=== PATIENT | female | born 1995 | race Caucasian/White ===

== ENCOUNTER → 2016-12-13 | Outpatient (CLI) | payer MEDICAID ==
[2016-12-25 16:02] LABS: HPV 16 Not Detected (NOTDET); HPV 18 Not Detected (NOTDET)
== END ==
LOC: MW.CHOBGYN 11:22
PROVIDERS: ATTEND Obstetrics & Gynecology
DX: Z72.51 High risk heterosexual behavior (principal)
CPT/HCPCS: 36415; 86592; 86803; 87340; 87389; 87480; 87491; 87510; 87591; 87624; 87660; G0145

== ENCOUNTER 2017-01-12 06:18 | Day surgery (SDC) | payer MEDICAID ==
--- NOTE | 2017-01-12 06:44 | PCM.PREANE ---
Preanesthetic Assessment - Anesthesia/Transfusion/Family Hx Anesthesia History: Prior Anesthesia Without Reaction Family History of Anesthesia Reaction: No Transfusion History: No Prior Transfusion(s) Intubation History: Unknown - Review of Systems General: No Symptoms Pulmonary: No Symptoms Cardiovascular: No Symptoms Gastrointestinal: No symptoms Neurological: No Symptoms Other: Reports: None - Physical Assessment Height: 1.7 m Weight: 117.934 kg ASA Class: 2 Mental Status: Alert & Oriented x3 Airway Class: Mallampati = 2 Dentition: Reports: Normal Dentition, Broken Tooth/Teeth (small c hip front upper incisor) Thyro-Mental Finger Breadths: 3 Mouth Opening Finger Breadths: 3 ROM/Head Extension: Full Lungs: Clear to auscultation, Normal respiratory effort Cardiovascular: Regular Rate, Regular Rhythm - Allergies Allergies/Adverse Reactions: Allergies Allergy/AdvReac Type Severity Reaction Status Date / Time Penicillins Allergy Hives Verified 06/01/16 19:04 - Blood Blood Available: No - Anesthesia Plan Pre-Op Medication Ordered: None - Acknowledgements Anesthesia Type Planned: General Anesthesia Pt an Appropriate Candidate for the Planned Anesthesia: Yes Alternatives and Risks of Anesthesia Discussed w Pt/Guardian: Yes Pt/Guardian Understands and Agrees with Anesthesia Plan: Yes PreAnesthesia Questionnaire - Past Health History Medical/Surgical History: Denies Medical/Surgical History HEENT History: Reports: Allergic Rhinitis, Other (See Below) Other HEENT History: wears glasses/contacts Musculoskeletal History: Reports: Back Pain, Chronic, Neck Pain, Chronic, Other (See Below) (shoulder pain) Neurological History: Reports: Migraines Psychiatric History: Reports: Anxiety, Depression Endocrine/Metabolic History: Reports: Obesity/BMI 30+ Immunologic History: Reports: Other (See Below) (tested positive for angioedema) Dermatologic History: Reports: Eczema - Past Surgical History Head Surgeries/Procedures: Reports: None HEENT Surgical History: Reports: Oral Surgery Other HEENT Surgeries/Procedures: wisdom teeth extraction - SUBSTANCE USE Smoking Status *Q: Never Smoker Second Hand Smoke Exposure: No Days Per Week of Alcohol Use: 0 Recreational Drug Use History: No Recreational Drug Type: Reports: Marijuana/Hashish - HOME MEDS Home Medications: Home Meds Cetirizine HCl [Allergy Relief] 1 tab PO ASDIRECTED 01/10/17 [History] Desogestrel/Ethinyl Estradiol [Apri] 1 tab PO DAILY 01/10/17 [History] - CURRENT (IN HOUSE) MEDS Current Meds: Current Medications Hydrocodone Bitart/Acetaminophen ([place] 325-5 Mg) 1 tab PO Q4H PRN PRN Reason: Pain Bupivacaine HCl/Epinephrine Bitart (Marcaine 0.25%/Epinephrine 1:200,000) 30 ml INJECT ONETIME ONE Stop: 01/12/17 08:01 Clindamycin Phosphate 600 mg/ (Premix) 50 mls @ 150 mls/hr IV ONETIME ONE Stop: 01/12/17 07:49 Lactated Ringer's (Ringers, Lactated) 1,000 mls @ 125 mls/hr IV ASDIRECTED SILVIA
[2017-01-12] MEDS ORDERED: Lactated Ringers 1,000 ML IV SCH ×3 (06:55→08:00)
[2017-01-12] MEDS ORDERED: Bupivacaine 0.25%/EPINEPHrine 1:200,000 10 ML SDV ONE (07:25)
[2017-01-12] MEDS ORDERED: Lidocaine 2% 5 ML SDV ONE (07:27)
[2017-01-12] MEDS ORDERED: fentaNYL 250 MCG/5 ML SDV ONE (07:28)
[2017-01-12] MEDS ORDERED: fentaNYL 100 MCG/2 ML SDV ONE ×2 (07:28→09:11)
[2017-01-12] MEDS ORDERED: Propofol 200 MG/20 ML SDV ONE ×2 (07:28→08:48)
[2017-01-12] MEDS ORDERED: Midazolam 1 MG/ML 2 ML SDV ONE (07:28)
[2017-01-12] MEDS ORDERED: Ondansetron 4 MG/2 ML SDV ONE (07:28)
[2017-01-12] MEDS ORDERED: Clindamycin Phosphate in D5W 600 MG in Premix Bag 1 BAG IV ONE ×2 (07:30)
[2017-01-12] MEDS ORDERED: Acetaminophen/HYDROcodone 325-5 MG Tab PO PRN (08:00)
[2017-01-12] MEDS ORDERED: Bupivacaine 0.25%/EPINEPHrine 1:200,000 10 ML SDV INJECT ONE (08:00)
[2017-01-12] MEDS ORDERED: HYDROmorphone 2 MG/ML Syringe ONE (08:28)
[2017-01-12] MEDS ORDERED: HYDROmorphone 2 MG/ML Syringe IVPUSH ONE (09:40)
[2017-01-12] MEDS: fentaNYL 100 MCG/2 ML SDV IVPUSH PRN ×3 (11:45→12:45)
--- NOTE | 2017-01-12 12:04 | PCM.POSTAN ---
POST ANESTHESIA ASSESSMENT - MENTAL STATUS Mental Status: alert, oriented - RESPIRATORY Respiratory Status: respiratory rate WNL, airway patent, O2 saturation stable - CARDIOVASCULAR CV Status: pulse rate WNL, blood pressure stable - GASTROINTESTINAL GI Status: no symptoms - PAIN Pain Score: 5 - POST OP HYDRATION Hydration Status: adequate & stable - OBSERVATIONS Free Text/Narrative:: no anesthesia problems
--- NOTE | 2017-01-12 14:47 | PCM48HPAN ---
Post Anesthesia Note - EVALUATION WITHIN 48HRS OF ANESTHETIC Vital Signs in Normal Range: Yes Patient Participated in Evaluation: Yes Respiratory Function Stable: Yes Airway Patent: Yes Cardiovascular Function Stable: Yes Hydration Status Stable: Yes Pain Control Satisfactory: Yes Nausea and Vomiting Control Satisfactory: Yes Mental Status Recovered: Yes
[2017-01-12 15:20] VITALS: BP 146/84
--- NOTE | 2017-01-12 16:50 | PCM.OPNOTE ---
- General Post-Op/Procedure Note Date of Surgery/Procedure: 01/12/17 Operative Procedure(s): bilateral breast reduction Pre Op Diagnosis: bilateral macromastia Post-Op Diagnosis: Same Anesthesia Technique: General LMA, Local Primary Surgeon: Tasneem Dailey Assurance Auditor: Zina Haynes Complications: None Condition: Good Free Text/Narrative:: Intake & Output 01/12/17 01/12/17 01/12/17 07:59 15:59 23:59 Intake Total 5700 Output Total 300 600 Balance -300 5100
--- NOTE | 2017-01-19 16:56 | OR ---
SURGEON: DENILSON HURT MD DATE OF PROCEDURE: 01/12/2017 PREOPERATIVE DIAGNOSIS: Bilateral macromastia. POSTOPERATIVE DIAGNOSIS: Bilateral macromastia. PROCEDURE: Bilateral reduction mammoplasty. BAKER HELPER: Zina Haynes. INDICATIONS: Ms. Jameson is a 21-year-old female, seen today for bilateral gigantomastia. Risks and benefits of reduction and mammoplasty were discussed with her. She is in agreement to proceed. Risks were including, but not limited to, bleeding, infection, damage to underlying or overlying structures, possible need for future interventions and possible scarring. PROCEDURE IN DETAIL: After informed consent was obtained and placed on the chart, the patient was brought to the operating theater and laid in supine position. A Castrejon was placed. Time-out was completed to confirm side and site, and the area was prepped and draped in normal fashion. Once adequately prepped and draped, a time-out was completed. Attention was then paid to the markings made in the preanesthesia area. The patient has a very large breast and thus they were marked for a 9 cm pedicle with 9 cm limbs. The inferior pedicle was then marked and isolated. Once adequately marked, attention was then paid to de-epithelialization and isolation of the nipple- areolar complex on that inferior pedicle. Once de-epithelialized, the superior skin flap was then elevated, 1 cm thick medially tapering to the chest wall and [address] to the chest wall laterally. Once adequately tapered, the intervening breast tissue was then removed isolating the pedicle itself. Once the intervening breast tissue was removed and weighed bilaterally, nearly 1000 g was taken on each side, meticulous hemostasis was obtained. The areas were copiously irrigated and after meticulous hemostasis was ensured, the superior skin flaps were draped around the inferior pedicle with the nipple- areolar complex in place and agustina at the incision line. The patient was sat up into the supine position and symmetry was appreciated. The new location of the nipple-areolar complexes were then marked, and the patient was sat back in the supine position. The nipple-areolar complex position was dissected first with a 15 blade through the skin and then Bovie electrocautery. The nipple- areolar complex on the inferior pedicle was brought through this window. This was stapled in place. Once appropriately positioned, symmetry was appreciated and the patient was laid back in the supine position, and the skin was closed using deep 3-0 Monocryl stitches and a running 4-0 subcuticular for the skin. The patient tolerated this well and all counts of needles were correct at the end of the case. FOLLOWUP INSTRUCTIONS: The patient will see us in the clinic tomorrow or sooner if any problems, questions, or concerns. She was given a prescription for pain control. TRACE / TRISTIN /[id number]
== END 2017-01-12 14:50 | disposition home or self-care (01) ==
LOC: MW.SDS 06:18
PROVIDERS: ATTEND Plastic Surgery
DX: N62 Hypertrophy of breast (principal); Z88.0 Allergy status to penicillin; Z86.2 Personal history of diseases of the blood and blood-forming organs and certain disorders involving the immune mechanism; Z86.59 Personal history of other mental and behavioral disorders; Z86.19 Personal history of other infectious and parasitic diseases; Z98.890 Other specified postprocedural states; Z78.9 Other specified health status
CPT/HCPCS: 19318; 81025; 88305; A9270; J1170; J2250; J2405; J3010; J7120; 00402; J2704

== ENCOUNTER 2017-01-21 00:11 | Inpatient (IN) | payer MEDICAID, OTHER ==
[2017-01-21] MEDS ORDERED: Sodium Chloride 0.9% 2.5 ML Syringe FLUSH PRN (00:24)
[2017-01-21] MEDS ORDERED: Sodium Chloride 0.9% 10 ML Syringe FLUSH PRN (00:24)
--- NOTE | 2017-01-21 00:29 | EDM.PDOC ---
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 Stated Complaint: INFECTION IN RIGHT BREAST Time Seen by Provider: 01/21/17 00:23 - History of Present Illness INITIAL COMMENTS - FREE TEXT/NARRATIVE: HISTORY AND PHYSICAL: History of present illness: Patient is a 21-year-old white female is one week status post breast reduction comes in now with erythema to right breast and discharged she noted earlier tonight this is warm tender patient denies fever chills nausea vomiting or other complaints states she was doing well until she noticed this discharge tonight Review of systems: As per history of present illness and below otherwise all systems reviewed and negative. Past medical history: As per history of present illness and as reviewed below otherwise noncontributory. Surgical history: As per history of present illness and as reviewed below otherwise noncontributory. Social history: No reported history of drug or alcohol abuse. Family history: As per history of present illness and as reviewed below otherwise noncontributory. Physical exam: HEENT: Atraumatic, normocephalic, pupils reactive, negative for conjunctival pallor or scleral icterus, mucous membranes moist, throat clear, neck supple, nontender, trachea midline. Lungs: Clear to auscultation, breath sounds equal bilaterally, patient has Steri -Strips in place for right breast does have erythema warmth to the touch and purulent discharge this is draining spontaneously. Heart: S1S2, regular, negative for clicks, rubs, or JVD. Abdomen: Soft, nondistended, nontender. Negative for masses or hepatosplenomegaly. Negative for costovertebral tenderness. Pelvis: Stable nontender. Genitourinary: Deferred. Rectal: Deferred. Extremities: Atraumatic, negative for cords or calf pain. Neurovascular unremarkable. Neuro: Awake, alert, oriented. Cranial nerves II through XII unremarkable. Cerebellum unremarkable. Motor and sensory unremarkable throughout. Exam nonfocal. Diagnostics: CBC CMP blood cultures x2 hCG lactic acid wound culture Therapeutics: Normal saline at 225 cc an hour vancomycin 1 g IV Impression: #1 cellulitis right breast #2 one week status post breast reduction surgery Definitive disposition and diagnosis as appropriate pending reevaluation and review of above. right breast Pain Score (Numeric/FACES): 7 - Related Data Allergies Allergy/AdvReac Type Severity Reaction Status Date / Time Penicillins Allergy Hives Verified 01/21/17 00:21 Home Meds: Home Meds Cetirizine HCl [Allergy Relief] 1 tab PO ASDIRECTED 01/10/17 [History] Desogestrel/Ethinyl Estradiol [Apri] 1 tab PO DAILY 01/10/17 [History] Acetaminophen/HYDROcodone [Sharon 325-5 MG] 1 tab PO Q4H PRN #40 tablet 01/12/17 [Rx] Past Medical History - Past Health History Medical/Surgical History: Denies Medical/Surgical History HEENT History: Reports: Allergic Rhinitis, Other (See Below) Other HEENT History: wears glasses/contacts Musculoskeletal History: Reports: Back Pain, Chronic, Neck Pain, Chronic, Other (See Below) Neurological History: Reports: Migraines Psychiatric History: Reports: Anxiety, Depression Endocrine/Metabolic History: Reports: Obesity/BMI 30+ Immunologic History: Reports: Other (See Below) Dermatologic History: Reports: Eczema - Past Surgical History Head Surgeries/Procedures: Reports: None HEENT Surgical History: Reports: Oral Surgery Other HEENT Surgeries/Procedures: wisdom teeth extraction Social & Family History - Family History Family Medical History: Noncontributory - Tobacco Use Smoking Status *Q: Never Smoker Second Hand Smoke Exposure: No - Caffeine Use Caffeine Use: Reports: None - Alcohol Use Days Per Week of Alcohol Use: 0 - Recreational Drug Use Recreational Drug Use: No Recreational Drug Type: Reports: Marijuana/Hashish ED ROS GENERAL - Review of Systems Review Of Systems: ROS reveals no pertinent complaints other than HPI. ED EXAM, GENERAL - Physical Exam Exam: See Below (See dictation) Course - Vital Signs Last Recorded V/S: Last Vital Signs Temp 36.5 C 01/21/17 00:22 Pulse 106 H 01/21/17 00:22 Resp 16 01/21/17 00:22 BP 118/70 01/21/17 00:22 Pulse Ox 97 01/21/17 00:22 - Orders/Labs/Meds Orders: Active Orders 24 hr Category Date Time Status Patient Status [ADT] Stat ADT 01/21/17 00:25 Active CBC WITH AUTO DIFF [HEME] Stat Lab 01/21/17 00:23 Ordered COMPREHENSIVE METABOLIC PN,CMP [CHEM] Stat Lab 01/21/17 00:23 Ordered CULTURE BLOOD [BC] Stat Lab 01/21/17 00:24 Ordered CULTURE BLOOD [BC] Stat Lab 01/21/17 00:24 Ordered CULTURE WOUND [RM] Stat Lab 01/21/17 00:24 Ordered HCG QUALITATIVE,SERUM [CHEM] Stat Lab 01/21/17 00:23 Ordered LACTIC ACID,WHOLE BLOOD [BG] Stat Lab 01/21/17 00:23 Ordered Sodium Chloride 0.9% [Saline Flush] Med 01/21/17 00:24 Active 10 ml FLUSH ASDIRECTED PRN Sodium Chloride 0.9% [Saline Flush] Med 01/21/17 00:24 Active 2.5 ml FLUSH ASDIRECTED PRN Vancomycin [Vancocin] 1 gm Med 01/21/17 00:24 Active Sodium Chloride 0.9% [Normal Saline] 250 ml IV ONETIME Blood Culture x2 Reflex Set [OM.PC] Stat Oth 01/21/17 00:24 Ordered Saline Lock Insert [OM.PC] Stat Oth 01/21/17 00:23 Ordered Medication Orders Vancomycin HCl 1 gm/ Sodium (Chloride) 250 mls @ 250 mls/hr IV ONETIME ONE Stop: 01/21/17 01:23 Sodium Chloride (Saline Flush) 10 ml FLUSH ASDIRECTED PRN PRN Reason: Keep Vein Open Sodium Chloride (Saline Flush) 2.5 ml FLUSH ASDIRECTED PRN PRN Reason: Keep Vein Open Meds: Medications Generic Name Dose Route Start Last Admin Trade Name Freq PRN Reason Stop Dose Admin Vancomycin HCl 1 gm/ Sodium 250 mls @ 250 mls/hr 01/21/17 00:24 Chloride IV 01/21/17 01:23 ONETIME ONE Sodium Chloride 10 ml 01/21/17 00:24 Saline Flush FLUSH ASDIRECTED PRN Keep Vein Open Sodium Chloride 2.5 ml 01/21/17 00:24 Saline Flush FLUSH ASDIRECTED PRN Keep Vein Open Departure - Departure Time of Disposition: 00:29 Disposition: Admitted As Inpatient 66 Condition: good Clinical Impression: Cellulitis - Discharge Information Forms: ED Department Discharge - My Orders Last 24 Hours: My Active Orders 01/21/17 00:23 CBC WITH AUTO DIFF [HEME] Stat COMPREHENSIVE METABOLIC PN,CMP [CHEM] Stat HCG QUALITATIVE,SERUM [CHEM] Stat LACTIC ACID,WHOLE BLOOD [BG] Stat Saline Lock Insert [OM.PC] Stat 01/21/17 00:24 CULTURE BLOOD [BC] Stat CULTURE BLOOD [BC] Stat CULTURE WOUND [RM] Stat Sodium Chloride 0.9% [Saline Flush] 10 ml FLUSH ASDIRECTED PRN Sodium Chloride 0.9% [Saline Flush] 2.5 ml FLUSH ASDIRECTED PRN Vancomycin [Vancocin] 1 gm Sodium Chloride 0.9% [Normal Saline] 250 ml IV ONETIME Blood Culture x2 Reflex Set [OM.PC] Stat 01/21/17 00:25 Patient Status [ADT] Stat - Assessment/Plan Last 24 Hours: My Active Orders 01/21/17 00:23 CBC WITH AUTO DIFF [HEME] Stat COMPREHENSIVE METABOLIC PN,CMP [CHEM] Stat HCG QUALITATIVE,SERUM [CHEM] Stat LACTIC ACID,WHOLE BLOOD [BG] Stat Saline Lock Insert [OM.PC] Stat 01/21/17 00:24 CULTURE BLOOD [BC] Stat CULTURE BLOOD [BC] Stat CULTURE WOUND [RM] Stat Sodium Chloride 0.9% [Saline Flush] 10 ml FLUSH ASDIRECTED PRN Sodium Chloride 0.9% [Saline Flush] 2.5 ml FLUSH ASDIRECTED PRN Vancomycin [Vancocin] 1 gm Sodium Chloride 0.9% [Normal Saline] 250 ml IV ONETIME Blood Culture x2 Reflex Set [OM.PC] Stat 01/21/17 00:25 Patient Status [ADT] Stat
[2017-01-21 01:29] LABS: CHLORIDE,CL 110 mmol/L (98-110); SODIUM,NA 141 mmol/L (136-146)
[2017-01-21] MEDS ORDERED: Morphine 2 MG/ML Syringe IVPUSH PRN (02:24)
[2017-01-21] MEDS: Sodium Chloride 0.9% 1,000 ML IV SCH ×2 (02:34→10:36)
--- NOTE | 2017-01-21 13:48 | PCM.HP ---
H&P History of Present Illness - General Date of Service: 01/21/17 Admit Problem/Dx: Admission Diagnosis/Problem Admission Diagnosis/Problem Cellulitis of right breast post breast reduction surgery Source of Information: Patient History Limitations: Reports: No Limitations - History of Present Illness Initial Comments - Free Text/Narative: The patient is a 21-year-old lady who is presented postop one week for bilateral breast reduction and the patient comes in to the emergency department with a complaint of increased redness, swelling and drainage from her incision sites. The patient has a followup appointment scheduled with plastic surgery 3 days from now. She came to the emergency department out of concern for worsening infection and felt that she could not wait that long. The patient says that she has noticed that there was heavy drainage in her bra and this is been primarily of purulent material. The patient also has denied any fever or chills. She denies any nausea or vomiting. Patient has been doing well up until yesterday. She has no specific aggravating or relieving factors and has not been taking any medications chronically. Onset of Symptoms: Reports: Today Duration of Symptoms: Reports: Hour(s):, Getting Worse Location: Reports: Chest Quality: Reports: Ache, Stabbing, Throbbing Severity: Mild Improves with: Reports: None Worsens with: Reports: None Associated Symptoms: Reports: No Other Symptoms right breast Pain Score (Numeric/FACES): 6 - Related Data Allergies/Adverse Reactions: Allergies Allergy/AdvReac Type Severity Reaction Status Date / Time Penicillins Allergy Hives Verified 01/21/17 00:21 Home Medications: Home Meds Cetirizine HCl [Allergy Relief] 1 tab PO ASDIRECTED PRN 01/10/17 [History] Desogestrel/Ethinyl Estradiol [Apri] 1 tab PO DAILY 01/10/17 [History] Acetaminophen/HYDROcodone [[place] 325-5 MG] 1 tab PO Q4H PRN #40 tablet 01/12/17 [Rx] Past Medical History - Past Health History Medical/Surgical History: Denies Medical/Surgical History HEENT History: Reports: Allergic Rhinitis, Other (See Below) Other HEENT History: wears glasses/contacts Cardiovascular History: Reports: None Respiratory History: Reports: None Gastrointestinal History: Reports: None [employer]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: Other (See Below) Other OB/BYN History: bilateral breast reduction Musculoskeletal History: Reports: Back Pain, Chronic, Neck Pain, Chronic Neurological History: Reports: Migraines Psychiatric History: Reports: Anxiety, Depression Endocrine/Metabolic History: Reports: Obesity/BMI 30+ Immunologic History: Reports: Other (See Below) Dermatologic History: Reports: Eczema - Past Surgical History Head Surgeries/Procedures: Reports: None HEENT Surgical History: Reports: Oral Surgery Other HEENT Surgeries/Procedures: wisdom teeth extraction Female Surgical History: Reports: Breast Reduction Social & Family History - Family History Family Medical History: Noncontributory - Tobacco Use Smoking Status *Q: Never Smoker Second Hand Smoke Exposure: No - Caffeine Use Caffeine Use: Reports: Tea - Alcohol Use Days Per Week of Alcohol Use: 0 - Recreational Drug Use Recreational Drug Use: Yes Drug Use in Last 12 Months: Yes Recreational Drug Type: Reports: Marijuana/Hashish Recreational Drug Use Frequency: Weekly - Living Situation & Occupation Living situation: Reports: Single Occupation: Employed H&P Review of Systems - Review of Systems: Review Of Systems: See Below General: Reports: No Symptoms HEENT: Reports: No Symptoms Pulmonary: Reports: No Symptoms Cardiovascular: Reports: No Symptoms Gastrointestinal: Reports: No Symptoms Genitourinary: Reports: No Symptoms Musculoskeletal: Reports: No Symptoms Skin: Reports: Erythema, Wound Psychiatric: Reports: No Symptoms Neurological: Reports: No Symptoms Hematologic/Lymphatic: Reports: No Symptoms Immunologic: Reports: No Symptoms Exam - Exam Exam: See Below - Vital Signs Vital Signs: Last Vital Signs Temp 36.2 C 01/21/17 12:00 Pulse 80 01/21/17 12:00 Resp 22 H 01/21/17 12:00 BP 106/57 L 01/21/17 12:00 Pulse Ox 97 01/21/17 12:00 Weight: 116.8 kg - Exam Quality Assessment: No: Supplemental Oxygen General: Alert, Oriented, 4 HEENT: Conjunctiva Clear, Hearing Intact, Mucosa Moist & [place], Nares Patent, Normal Nasal Septum Neck: Supple, Trachea Midline Lungs: Clear to Auscultation, Normal Respiratory Effort Cardiovascular: Regular Rate, Regular Rhythm Abdomen: Normal Bowel Sounds, Soft. No: Peritoneal Signs Skin: Wound Skin Alteration Location (Drawings Not To Scale): 1 - bilateral breast exam shows cellulitis, erythema, drainage primarily right breast Neurological: Cranial Nerves Intact Neuro Extensive - Mental Status: Alert, Oriented x3 - Patient Data Lab Results last 24 hrs: Laboratory Results - last 24 hr 01/21/17 01/21/17 01/21/17 Range/Units 00:52 00:52 00:52 WBC 14.04 H (4.0-11.0) K/uL RBC 4.38 (4.30-5.90) M/uL Hgb 12.5 (12.0-16.0) g/dL Hct 38.4 (36.0-46.0) % MCV 87.7 (80.0-98.0) fL MCH 28.5 (27.0-32.0) pg MCHC 32.6 (31.0-37.0) g/dL RDW Std Deviation 43.8 (28.0-62.0) fl RDW Coeff of Boris 14 (11.0-15.0) % Plt Count 421 H (150-400) K/uL MPV 9.10 (7.40-12.00) fL Neut % (Auto) 66.7 (48.0-80.0) % Lymph % (Auto) 24.9 (16.0-40.0) % [place] % (Auto) 6.9 (0.0-15.0) % Eos % (Auto) 1.4 (0.0-7.0) % Baso % (Auto) 0.1 (0.0-1.5) % Neut # (Auto) 9.4 H (1.4-5.7) K/uL Lymph # (Auto) 3.5 H (0.6-2.4) K/uL [place] # (Auto) 1.0 H (0.0-0.8) K/uL Eos # (Auto) 0.2 (0.0-0.7) K/uL Baso # (Auto) 0.0 (0.0-0.1) K/uL Nucleated RBC % 0.0 /100WBC Nucleated RBCs # 0 K/uL Lactate 1.4 (0.20-2.00) mmol/L Sodium 141 (136-146) mmol/L Potassium 3.6 (3.5-5.1) mmol/L Chloride 110 (98-110) mmol/L Carbon Dioxide 19 L (21-31) mmol/L BUN 14 (6.0-23.0) mg/dL Creatinine 0.8 (0.6-1.5) mg/dL Est Cr Clr Drug Dosing 104.14 mL/min Estimated GFR (MDRD) > 60.0 ml/min Glucose 103 (60-110) mg/dL Calcium 9.3 (8.8-10.8) mg/dL Total Bilirubin 0.2 (0.1-1.5) mg/dL AST 15 (5-40) IU/L ALT 19 (8-54) IU/L Alkaline Phosphatase 103 (40-150) Total Protein 7.5 (6.0-8.0) g/dL Albumin 4.0 (3.5-5.0) g/dL Globulin 3.5 (2.0-3.5) g/dL Albumin/Globulin Ratio 1.1 L (1.3-2.8) HCG, Qual (NEG) 01/21/17 Range/Units 00:52 WBC (4.0-11.0) K/uL RBC (4.30-5.90) M/uL Hgb (12.0-16.0) g/dL Hct (36.0-46.0) % MCV (80.0-98.0) fL MCH (27.0-32.0) pg MCHC (31.0-37.0) g/dL RDW Std Deviation (28.0-62.0) fl RDW Coeff of Boris (11.0-15.0) % Plt Count (150-400) K/uL MPV (7.40-12.00) fL Neut % (Auto) (48.0-80.0) % Lymph % (Auto) (16.0-40.0) % Rhea % (Auto) (0.0-15.0) % Eos % (Auto) (0.0-7.0) % Baso % (Auto) (0.0-1.5) % Neut # (Auto) (1.4-5.7) K/uL Lymph # (Auto) (0.6-2.4) K/uL Rhea # (Auto) (0.0-0.8) K/uL Eos # (Auto) (0.0-0.7) K/uL Baso # (Auto) (0.0-0.1) K/uL Nucleated RBC % /100WBC Nucleated RBCs # K/uL Lactate (0.20-2.00) mmol/L Sodium (136-146) mmol/L Potassium (3.5-5.1) mmol/L Chloride (98-110) mmol/L Carbon Dioxide (21-31) mmol/L BUN (6.0-23.0) mg/dL Creatinine (0.6-1.5) mg/dL Est Cr Clr Drug Dosing mL/min Estimated GFR (MDRD) ml/min Glucose (60-110) mg/dL Calcium (8.8-10.8) mg/dL Total Bilirubin (0.1-1.5) mg/dL AST (5-40) IU/L ALT (8-54) IU/L Alkaline Phosphatase (40-150) Total Protein (6.0-8.0) g/dL Albumin (3.5-5.0) g/dL Globulin (2.0-3.5) g/dL Albumin/Globulin Ratio (1.3-2.8) HCG, Qual NEGATIVE (NEG) Result Diagrams: 01/21/17 00:52 01/21/17 00:52 *Q Meaningful Use (ADM) - VTE *Q VTE Criteria *Q: - Stroke *Q Stroke Criteria *Q: - AMI *Q AMI Criteria *Q: - Problem List (1) Mastitis in female SNOMED Code(s): 57694434 ICD Code: N61.0 - MASTITIS WITHOUT ABSCESS Status: Acute Priority: High Current Visit: Yes Problem Details: the patient is one week postop breast reduction surgery bilaterally (2) Cellulitis SNOMED Code(s): 759706860 ICD Code: L03.90 - CELLULITIS, UNSPECIFIED Status: Acute Current Visit: Yes Qualifiers: Site of cellulitis: other site Qualified Code(s): L03.818 - Cellulitis of other sites (3) Leukocytosis SNOMED Code(s): 179307574, 464723897 ICD Code: D72.829 - ELEVATED WHITE BLOOD CELL COUNT, UNSPECIFIED Status: Acute Priority: High Current Visit: Yes Qualifiers: Leukocytosis type: unspecified Qualified Code(s): D72.829 - Elevated white blood cell count, unspecified Problem List Initiated/Reviewed/Updated: Yes Orders Last 24hrs: Active Orders 24 hr Category Date Time Status Regular Diet [DIET] Diet 01/21/17 Breakfast Active Morphine Med 01/21/17 02:24 Active 2 mg IVPUSH Q4H PRN Sodium Chloride 0.9% [Normal Saline] 1,000 ml Med 01/21/17 02:30 Active IV ASDIRECTED Medication Orders Sodium Chloride (Normal Saline) 1,000 mls @ 125 mls/hr IV ASDIRECTED SILVIA Last Admin: 01/21/17 10:36 Dose: 125 mls/hr Infusion: 01/21/17 10:34 Dose: 125 mls/hr Admin: 01/21/17 02:34 Dose: 125 mls/hr Morphine Sulfate (Morphine) 2 mg IVPUSH Q4H PRN PRN Reason: Pain Sodium Chloride (Saline Flush) 10 ml FLUSH ASDIRECTED PRN PRN Reason: Keep Vein Open Last Admin: 01/21/17 01:05 Dose: 10 ml Sodium Chloride (Saline Flush) 2.5 ml FLUSH ASDIRECTED PRN PRN Reason: Keep Vein Open Last Admin: 01/21/17 01:06 Dose: 2.5 ml Assessment/Plan Comment:: The patient is a 21-year-old lady who has been admitted to observation secondary to mastitis status post breast reduction surgery. The infection itself looks minimal at this point however, the patient has been placed on vancomycin secondary to concern for staph infection. The patient does have a white blood cell count of 14,000 which does indicate infection or this may be D. marginalization from her previous surgery. The patient is otherwise doing relatively well and she has been tolerating her diet. The patient will be maintained on the antibiotic therapy and it's possible that she may be able to go home later today on oral antibiotics with the admonition to followup with plastic surgery as scheduled. The patient has been afebrile and her vital signs have been stable. The patient's treatment plan will be adjusted accordingly.
[2017-01-21 16:09] VITALS: BP 111/58
== END 2017-01-21 17:02 | disposition home or self-care (01) | DRG 600 ==
LOC: MW.ED 00:11 → MW.MS 00:25
PROVIDERS: ADMIT Internal Medicine; ATTEND Internal Medicine
DX: N61.0 Mastitis without abscess (principal); L03.818 Cellulitis of other sites; D72.829 Elevated white blood cell count, unspecified; Z98.890 Other specified postprocedural states; Z79.899 Other long term (current) drug therapy; Z88.0 Allergy status to penicillin
CPT/HCPCS: 36415; 80053; 83605; 84703; 85025; 87040; 87070; 96365; 99284-25; 99285; J3370; J7040; J7050

== ENCOUNTER 2020-04-19 12:17 | Emergency (ER) | payer BC, OTHER, SELFPAY ==
[2020-04-19 12:33] VITALS: BP 113/78; PULSE 76
[2020-04-19] MEDS ORDERED: Sodium Chloride 0.9% 10 ML Syringe FLUSH PRN (12:45)
[2020-04-19] MEDS ORDERED: Sodium Chloride 0.9% 2.5 ML Syringe FLUSH PRN (12:45)
[2020-04-19] MEDS ORDERED: HYDROmorphone 1 MG/ML Syringe IVPUSH ONE (12:45)
[2020-04-19] MEDS ORDERED: Prochlorperazine 10 MG/2 ML SDV IVPUSH ONE (12:48)
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
[2020-04-19] MEDS ORDERED: Iopamidol 755 MG/ML 200 ML Multipack Bottle IVPUSH ONE (13:08)
[2020-04-19 13:19] LABS: BLOOD UREA NITROGEN,BUN 18 mg/dL (7.0-18.0); CARBON DIOXIDE,CO2 24.6 mmol/L (21.0-32.0); CHLORIDE,CL 105 mmol/L (98-107); GLUCOSE RANDOM 94 mg/dL (74-106); POTASSIUM,K 3.5 mmol/L (3.5-5.1); SODIUM,NA 141 mmol/L (136-145)
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
== END 2020-04-19 14:28 | disposition home or self-care (01) ==
LOC: MW.ED 12:17
DX: S06.0X9A Concussion with loss of consciousness of unspecified duration, initial encounter (principal); S70.01XA Contusion of right hip, initial encounter; S70.312A Abrasion, left thigh, initial encounter; S30.810A Abrasion of lower back and pelvis, initial encounter; S00.03XA Contusion of scalp, initial encounter; E66.9 Obesity, unspecified; Z68.34 Body mass index [BMI] 34.0-34.9, adult; Z88.0 Allergy status to penicillin; V86.69XA Passenger of other special all-terrain or other off-road motor vehicle injured in nontraffic accident, initial encounter
CPT/HCPCS: 36415; 70450; 71045; 72125; 72170; 74177; 80053; 80307; 84703; 85025; 85610; 86850; 86900; 86901; 96374; 96375; 99284; J0780; J1170; Q9967